=== PATIENT | female | born 1985 | race Asian ===

== ENCOUNTER 2018-08-20 04:29 | Inpatient (IN) | payer OTHER ==
[2018-08-20] MEDS ORDERED: ceFOXitin 2 GM IVPREMIX* 2 GM/50 ML BAG IVPB ONE (07:06)
[2018-08-20 07:12] LABS: Hematocrit 41 % (35-47); Hemoglobin 14.1 g/dl (12.0-16.0); Mean Corpuscular HGB Conc 35 g/dl (31-36); Mean Corpuscular Hemoglobin 29 pg (27-31); Mean Corpuscular Volume 85 fL (80-97); Mean Platelet Volume 8.8 um3 (7.4-10.4); Platelet Count 233 10^3/ul (150-450); Red Blood Count 4.81 10^6/ul (4.00-5.40); Red Cell Distribution Width 14 % (10.5-15)
--- NOTE | 2018-08-20 07:38 | HP ---
General Information - General Information Maternal Age: 33 Grav: 1 Para: 0 SAB: 0 IEA: 0 Estimated Due Date: 09/08/18 Determined By: LMP Gestational Age in Weeks/Days: 37+2 Maternal Blood Type and Rh: B Positive - Results this Serology/RPR Result: Non-Reactive Rubella Result: Immune HBsAg Result: Negative HIV Result: Negative GBS Culture Result: Negative Past Medical History Delivery History: See Records Delivery History Comment: No previous pregnancies Pertinent Past Medical History: Non-Contributory Past Medical History Comment: Allergic rhinitis IBS Hx +PPD Pertinent Past Surgical History: See Records Past Surgical History Comment: Right breast biopsy 2002 Pertinent Family History: Non-Contributory Family History Comment: [place] Stroke Liver CA - Antepartal Records Antepartal Records: Reviewed, Complicated by: - GDM; right ovarian cyst Review of Systems Constitutional: Uncomfortable CV Complaint: No Respiratory: Shortness of Breath: No Gastrointestinal: No Nausea/Vomiting, Normal Bowel Movement Genitourinary: Leaking Fluid, No Dysuria, Spotting Musculoskeletal: Contractions Neurological: No Headache, No Visual Changes Movement: Normal Exam Allergies/Adverse Reactions: Allergies No Known Allergies Allergy (Verified 08/20/18 05:34) Vital Signs 08/20/18 05:35 Temperature 98.7 F Pulse Rate 69 Respiratory 17 Rate Blood Pressure 118/79 (mmHg) O2 Sat by Pulse 100 Oximetry Lab Values - Entire Visit: Laboratory Tests 08/20/18 08/20/18 06:50 06:50 WBC 12.0 H RBC 4.81 Hgb 14.1 Hct 41 MCV 85 MCH 29 MCHC 35 RDW 14 Plt Count 233 MPV 8.8 Blood Type B Positive - Measurements Height: 5 ft 3 in Weight: 138 lb Weight in lbs: 138.658170 Body Mass Index (BMI): 24.4 Pre- Weight: 125 lb Weight Gained This : 13 lbs and 0 ozs - Exam Breast: Breast Exam Deferred CVA: No CVA Tenderness Extremities: No Edema Heart: Normal Rhythm/Heart Sounds HEENT: No Significant Findings Lungs: Clear Bilaterally Rectal: Rectal Exam Deferred Reflexes: DTR 2+, - - no clonus Thyroid: - - WNL @ entry to [facility] - Abdominal Exam Abdomen Exam: Non-Tender, Fundal Height Consistent with Dates - Ultrasound/Biophysical Profile Ultrasound Status: Bedside Exam Ultrasound Findings: Breech presentation Targeted Exam Findings See L&D Outpatient Visit Provider Note for Findings: N/A Estimated Weight: 6lb Presenting Part: Breech Membrane Status: SROM Amniotic Fluid Evaluation: Gross Rupture, Clear Bleeding/Discharge: Bloody Show EFM Findings - External Monitor Findings Baseline Heart Rate: 130 External Monitor Findings: Accelerations Present, No Pattern of Variable or Late Decelerations, Variability Moderate Contractions: Irregular, Moderate, < 45 Seconds Contraction Frequency: q 2-5 min Assessment/Plan - Assessment IUP @ 37+2 weeks gestation, breech presentation with spontaneous rupture of membranes. No evidence metabolic acidemia. - Obstetrical Risk Factors Obstetrical Risk Factors: Gestational Diabetes - Plan Plan: Expedite C/S Delivery Plan Comment: Admit to L&D, advise and all needed staff for CS. - Date/Time of Admission Date of Admission: 08/20/18 Time of Admission: 05:42
[2018-08-20] MEDS ORDERED: Glycerin ADULT SUPP PR PRN (08:10)
[2018-08-20] MEDS ORDERED: Witch Hazel PAD* JAR TOPICAL PRN (08:10)
[2018-08-20] MEDS ORDERED: Dibucaine 1% 28.35 GM TUBE PR PRN (08:10)
[2018-08-20] MEDS ORDERED: Acetaminophen TAB* 325 MG PO PRN (08:10)
[2018-08-20] MEDS ORDERED: oxyCODONE/Acetamin 5/325 MG* TAB PO PRN (08:10)
[2018-08-20] MEDS ORDERED: Sodium Citrate/Citric Acid* 15 ML UDC ONE (08:18)
[2018-08-20] MEDS ORDERED: Ondansetron INJ* 2 MG/ML VIAL ONE (08:54)
[2018-08-20] MEDS ORDERED: EPHEDrine (Pressors)* 50 MG/ML VIAL ONE (08:54)
[2018-08-20] MEDS ORDERED: OXYTOCIN* 10 UNITS/ML 1 ML VIAL ONE (08:54)
[2018-08-20] MEDS ORDERED: Bupivacaine-MPF SPINAL* 7.5 MG/ML - 2ML AMP ONE (08:54)
[2018-08-20] MEDS ORDERED: Ketorolac INJ* 30 MG/ML 1 ML VIAL ONE (08:54)
[2018-08-20] MEDS ORDERED: Oxytocin in LR* 20 UNITS/1,000 ML BAG IVPB SCH (09:00)
[2018-08-20] MEDS ORDERED: oxyCODONE TAB* 5 MG TAB PO PRN (09:06)
[2018-08-20] MEDS ORDERED: Acetaminophen IV 1GM/100ML * 1,000 MG/100 ML VIAL IVPB ONE (09:06)
[2018-08-20] MEDS ORDERED: DiMENhydriNATE IV* 50 MG/ML VIAL IV PUSH PRN (09:06)
[2018-08-20] MEDS ORDERED: HYDROmorphone INJ1* 1 MG/ML SYRINGE IV PRN (09:06)
[2018-08-20] MEDS ORDERED: fentaNYL* 50 MCG/ML 2 ML VIAL (100 MCG VIAL) ONE (09:25)
[2018-08-20] MEDS ORDERED: Propofol* 10 MG/ML 20 ML BTL IV PUSH ONE (09:47)
[2018-08-20] MEDS ORDERED: HYDROmorphone INJ* 0.5 MG/0.5 ML SYRINGE IV PRN (10:00)
[2018-08-20] MEDS: Simethicone TAB* 80 MG TAB.CHEW PO SCH ×3 (13:10→19:06)
[2018-08-20] MEDS: oxyCODONE/Acetamin 5/325 MG* TAB PO PRN ×2 (13:10→18:28)
[2018-08-20] MEDS: Docusate CAP* 100 MG PO SCH ×2 (13:12→19:06)
[2018-08-20] MEDS: Ibuprofen TAB* 600 MG PO PRN ×2 (15:46→21:23)
[2018-08-21] MEDS: oxyCODONE/Acetamin 5/325 MG* TAB PO PRN ×2 (02:28→06:28)
[2018-08-21] MEDS: Ibuprofen TAB* 600 MG PO PRN ×4 (02:29→21:55)
[2018-08-21] MEDS: Simethicone TAB* 80 MG TAB.CHEW PO SCH ×4 (02:30→21:48)
[2018-08-21] MEDS: Docusate CAP* 100 MG PO SCH ×4 (02:30→21:49)
--- NOTE | 2018-08-21 02:36 | OP ---
DATE OF OPERATION: 08/20/18 - ROOM #103 DATE OF : 89 SURGEON: Garima Read MD INSTITUTIONAL RESEARCH DIRECTOR: Mena Schwartz CNM ANESTHESIOLOGIST: Joyce Baker MD ANESTHESIA: Spinal. PRE-OP DIAGNOSES: 1. Intrauterine at 37 and 2/7th weeks. 2. Spontaneous rupture of membranes. 3. Labor. 4. Left sacrum anterior. POST-OP DIAGNOSES: 1. Intrauterine at 37 and 2/7th weeks. 2. Spontaneous rupture of membranes. 3. Labor. 4. Left sacrum anterior. 5. Delivered. 6. Right ovarian dermoid cyst. OPERATIVE PROCEDURE: Primary low transverse and right ovarian cystectomy. FINDINGS: Revealed a female infant, nuchal cord x2, Apgars 9 and 9, weight was 5 pounds 2 ounces, meconium. Placenta posterior, manually extracted intact 3- vessel cord to Pathology. Left tube and ovary with normal appearance. Right fallopian tube with normal appearance. 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 ESTIMATED BLOOD LOSS: 600. URINE OUTPUT: 400 cc of clear yellow urine. IV FLUIDS: 1300 cc of crystalloid. COMPLICATIONS: None apparent. DISPOSITION: Stable to recovery room. DESCRIPTION OF PROCEDURE: The patient was placed in dorsal lithotomy position. The abdomen was prepped and draped in a sterile standard fashion. The patient was identified with the universal protocol for correct procedure, position, and patient. Anesthesia was tested to appropriate level. An incision was made 2 fingerbreadths above the pubic symphysis. This was carried down through to the fascia. Fascia was scored in the midline and extended laterally and superiorly using curved Blank scissors. Fascia was superiorly and inferiorly with blunt and sharp dissection. The peritoneum was then entered bluntly. The peritoneal incision was extended bluntly. Bladder blade was inserted. The lower uterine segment was identified. An incision was made with scalpel. This was carried down through to amnion, meconium was noted. The incision was extended laterally and superiorly using bandage scissors. The was found to be in left sacrum anterior. Head delivered spontaneously after reduction of 1 cord and then second cord was reduced. Cord was allowed to pulse for greater than a minute. The cord was then clamped and then cut and infant was handed off to awaiting eligibility clerk, Dr. Vidavalur. Appropriate cord blood was then obtained. Placenta was then manually extracted, posterior insert, noted to be 3 -vessel cord and intact. Uterus was exteriorized, wrapped in warm moist laparotomy sponge. The uterine incision itself was reapproximated in 2 layers, first layer running locked 0 Vicryl, second layer running imbricated 0 Vicryl. Given the prior history of a right ovarian cyst, the right ovary was visualized. A Bovie tip was used to cauterize into the ovarian cyst and sebaceous material was noted. The dissection of the right ovarian dermoid cyst was then carried out with blunt and sharp dissection for an ovarian cyst intact , noted to have sebaceous material and hair within the ovarian cyst giving the diagnosis of mature teratoma. The base of the cyst site was cauterized. The base of the ovary was noted to be hemostatic. The ovarian defect was then reapproximated using 3-0 Vicryl in a circumferential fashion for complete closure of the space. Hemostasis was assured. Uterus was returned intraabdominally. Colic gutters were lavaged. The ovarian cyst site was revisualized and noted to be hemostatic. The hysterotomy site was noted to be hemostatic. The peritoneum was then clamped with Gerri's and reapproximated using 2-0 Vicryl in a running fashion. The subfascial area was visualized, hemostasis assured with Bovie coagulation, and the fascia itself was reapproximated using 0 Vicryl x2 in a running fashion. Subcu was lavaged, hemostasis was assured, and the skin was then reapproximated using 4-0 Monocryl in a subcuticular fashion. All sponge, instrument, and blade counts were correct throughout the case. The patient tolerated the procedure well and then went to recovery room in stable condition. [id number]/[facility] #: [id number] [facility]ENTERShawn
[2018-08-21 06:25] LABS: ABS Basophils 0.1 10^3/ul (0-0.2); ABS Eosinophils 0 10^3/ul (0-0.6); ABS Lymphocytes 2.2 10^3/ul (1.0-4.8); ABS Monocytes 0.6 10^3/ul (0-0.8); ABS Neutrophils 15.5 10^3/ul (1.5-7.7); ABS Nucleated RBC 0 10^3/ul; Eosinophil % 0.1 % (0-6); Hematocrit 34 % (35-47); Hemoglobin 11.8 g/dl (12.0-16.0); Lymphocyte % 12.1 % (25-47); Mean Corpuscular HGB Conc 35 g/dl (31-36); Mean Corpuscular Hemoglobin 30 pg (27-31); Mean Corpuscular Volume 86 fL (80-97); Nucleated Red Blood Cells % 0; Platelet Count 204 10^3/ul (150-450); Red Blood Count 3.92 10^6/ul (4.00-5.40); Red Cell Distribution Width 14 % (10.5-15); White Blood Count 18.4 10^3/ul (3.5-10.8)
[2018-08-21] MEDS: Ferrous Gluconate TAB* 324 MG TAB PO SCH ×2 (09:09→21:49)
[2018-08-22] MEDS: Docusate CAP* 100 MG PO SCH ×2 (09:39→13:28)
[2018-08-22] MEDS: Simethicone TAB* 80 MG TAB.CHEW PO SCH ×2 (09:39→13:28)
[2018-08-22] MEDS: Ibuprofen TAB* 600 MG PO PRN ×2 (17:54→23:58)
[2018-08-23] MEDS: Simethicone TAB* 80 MG TAB.CHEW PO SCH ×3 (07:18→12:11)
[2018-08-23] MEDS: Docusate CAP* 100 MG PO SCH ×3 (07:18→07:54)
[2018-08-23] MEDS: Ibuprofen TAB* 600 MG PO PRN (07:51)
[2018-08-23 07:58] VITALS: BP 106/71
== END 2018-08-23 13:56 | disposition home or self-care (01) | DRG 788 ==
LOC: MCHOBOUT 04:29 → MCHOB 05:42
PROVIDERS: ADMIT Obstetrics & Gynecology; ATTEND Obstetrics & Gynecology
PROC: 0UB00ZZ Excision of Right Ovary, Open Approach (ICD-10-PCS; 2018-08-20)
PROC: 4A1HX4Z Monitoring of Products of Conception, Cardiac Electrical Activity, External Approach (ICD-10-PCS; 2018-08-20)
PROC: 10D00Z1 Extraction of Products of Conception, Low, Open Approach (ICD-10-PCS; principal; 2018-08-20 08:25)
DX: O32.1XX0 Maternal care for breech presentation, not applicable or unspecified (principal); O24.429 Gestational diabetes mellitus in childbirth, unspecified control; O77.0 Labor and delivery complicated by meconium in amniotic fluid; Z3A.37 37 weeks gestation of pregnancy; Z37.0 Single live birth; O34.83 Maternal care for other abnormalities of pelvic organs, third trimester; O69.81X0 Labor and delivery complicated by cord around neck, without compression, not applicable or unspecified; D27.0 Benign neoplasm of right ovary; Z88.1 Allergy status to other antibiotic agents
CPT/HCPCS: 36415; 76815; 85025; 85027; 86850; 86900; 86901; 88305; 88307; A9270-GY; J0694; J1885; J2405; J2590; J2704; J3010